=== PATIENT | male | born 1950 | race Caucasian/White ===

== ENCOUNTER → 2021-08-24 | Outpatient (CLI) | payer MEDICARE, BC ==
[~2021-08-24] MED LIST: NO HOME MEDICATIONS; NORCO 325 MG-51 TAB PO; ZETIA 10MG TAB10 MG PO
== END ==
LOC: COL.VAS 13:33
DX: I35.0 Nonrheumatic aortic (valve) stenosis (principal); C83.89 Other non-follicular lymphoma, extranodal and solid organ sites

== ENCOUNTER 2021-09-05 11:36 | Day surgery (SDC) | payer MEDICARE, BC ==
[2021-09-04 09:56] LABS: HEMOGLOBIN 12.4 g/dl (13.5-18.0); MEAN CELL VOLUME 97 fl (80.0-100.0); MEAN CORPUSCULAR HEMOGLOBIN 33 pg (27-31); MEAN CORPUSCULAR HGB CONC 34 g/dl (33.0-37.0); MEAN PLATELET VOLUME 10.7 fl (7.4-10.4); PLATELET COUNT 50 K/mm3 (130-400); RED BLOOD COUNT 3.81 M/mm3 (4.20-5.60); REDCELL DISTRIBUTION WIDTH-CV 15.4 % (11.5-14.5)
[2021-09-04 10:12] LABS: ALBUMIN 3.3 gm/dL (3.4-4.8); BILIRUBIN,TOTAL 1.4 mg/dL (0.2-1.2); CALCIUM 9.1 mg/dL (8.4-10.2); CREATININE, serum 2.56 mg/dL (0.72-1.25); POTASSIUM 4.6 mmol/L (3.5-4.5); TOTAL PROTEIN 5.8 gm/dL (6.2-8.1)
[~2021-09-05] VITALS: Ht 188 cm; Wt 83.2 kg
[2021-09-05] MEDS ORDERED: PREDNISONE20 MG PO (13:52)
[2021-09-05] MEDS ORDERED: ZYLOPRIM 100MG100 MG PO (13:53)
[2021-09-05] MEDS ORDERED: PRILOSEC 20MG20 MG PO (13:54)
[2021-09-05 13:55] VITALS: BP 126/70; PULSE 92; TEMP 97.5
--- NOTE | 2021-09-05 14:16 | NUR ---
1 units of ordered platelets have infused. This nurse remained at bedside for the entire unit. VS remain stable and documented-see flowsheet. No s/s of transfusion reaction. Denies complaints. remains in room visiting.
[2021-09-05 14:19] VITALS: BP 135/81; PULSE 98; TEMP 97.5
[2021-09-05 15:01] VITALS: BP 116/60; PULSE 91; TEMP 97.5
[2021-09-05 15:10] VITALS: BP 119/81; PULSE 92; TEMP 97.5
--- NOTE | 2021-09-05 15:18 | NUR ---
2/2 unit of platelets infused. VS remain stable-see flowsheet. No s/s of transfusion reaction. Pt remains on cart, with in room. Denies needs or complaints. Side rails up and pt has call light in reach.
--- NOTE | 2021-09-05 16:56 | NUR ---
Pt up to void. Taken via cart to OR by FANNY Shipman. remains in room with pt belongings.
[2021-09-05 17:44] VITALS: BP 98/60; PULSE 87; TEMP 97.5
--- NOTE | 2021-09-05 17:44 | NUR ---
Pt returned from OR via cart to [facility]. Pt is A&O. in room upon return. VSS-see flowsheet. Pt denies complaints. Dressing to left chest clean, dry and intact. Given mary crackers and pepsi per request.
[2021-09-05 18:00] VITALS: BP 96/53; PULSE 88
--- NOTE | 2021-09-05 18:21 | NUR ---
Pt eager to go home. VS stable. Dressing remains clean dry and intact. Tolerated oral intake. Discharge teaching completed, pt and pts verbalized understanding. After pt dressed and IV removed, pt taken via wheelchair to private vehicle with driving.
== END 2021-09-05 18:23 | disposition home or self-care (01) ==
LOC: SDCO 11:36
PROVIDERS: Surgery
DX: C83.30 Diffuse large B-cell lymphoma, unspecified site (principal); F17.210 Nicotine dependence, cigarettes, uncomplicated; Z79.52 Long term (current) use of systemic steroids
CPT/HCPCS: C1788; J0690; J1644; J2250; J2405; J2704; J3010; J7120; P9035